=== PATIENT | male | born 1995 | race Caucasian/White ===

== ENCOUNTER 2022-03-08 18:19 | Emergency (ER) | payer BC, MEDICAID ==
[2022-03-08] MEDS ORDERED: Adacel Vial IM ONE (19:04)
--- NOTE | 2022-03-08 19:09 | ERPHSYRPT ---
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 Triage Nursing Assessment: Patient with a laceration to his left hand 2nd digit. Area wrapped with a rag from the patient's kitchen upon arrival to the ED. I moderate amount of blood noted on rag. Patient is able to move finger WNL. 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 Patient reports there is a flap, bleeding but applied firm pressure and improved. Complaining of dull aching mild to moderate pain, more with palpation and movements. No numbness or tingling in the fingertip. Unsure about tetanus status. Timing/Duration: hour(s) (0.5), sudden Quality: painful Severity: mild, moderate Location: hands Possible Causes: other Associated Symptoms: denies symptoms Allergies/Adverse Reactions: No Known Drug Allergies Allergy (Verified 03/08/22 18:29) Hx Tetanus, Diphtheria Vaccination/Date Given: No (Unsure about tetanus) Hx Influenza Vaccination/Date Given: No Hx Pneumococcal Vaccination/Date Given: No Immunizations Up to Date: Yes Travel Risk - International Travel Have you traveled outside of the country in past 3 weeks: No - Coronavirus Screening Are you exhibiting any of the following symptoms?: No Close contact with a COVID-19 positive Pt in past 14-21 Days: No - Vaccine Status Have you recieved a Covid-19 vaccination: No - Review of Systems Constitutional: No Symptoms Ears, Nose, & Throat: No Symptoms Respiratory: No Symptoms Cardiac: No Symptoms Abdominal/Gastrointestinal: No Symptoms Musculoskeletal: Injury Skin: Skin Lesions Neurological: No Symptoms Hematologic/Lymphatic: No Symptoms Immunological/Allergic: No Symptoms - Past Medical History Pertinent Past Medical History: Yes Neurological History: No Pertinent History ENT History: No Pertinent History Cardiac History: Hypertension Respiratory History: No Pertinent History Endocrine Medical History: No Pertinent History Musculoskeletal History: No Pertinent History GI Medical History: No Pertinent History History: No Pertinent History Psycho-Social History: No Pertinent History Male Reproductive Disorders: No Pertinent History - Past Surgical History Past Surgical History: Yes Neuro Surgical History: No Pertinent History Cardiac: No Pertinent History Respiratory: No Pertinent History Gastrointestinal: No Pertinent History Genitourinary: No Pertinent History Musculoskeletal: Other Male Surgical History: No Pertinent History Other Surgical History: Ankles - Social History Smoking Status: Current every day smoker How long have you smoked: 15 years Exposure to second hand smoke: Yes Drug Use: none - Nursing Vital Signs Nursing Vital Signs: Initial Vital Signs Temperature 98 F 03/08/22 18:30 Pulse Rate 84 03/08/22 18:30 Respiratory Rate 19 03/08/22 18:30 Blood Pressure 141/85 03/08/22 18:30 O2 Sat by Pulse Oximetry 96 03/08/22 18:30 Pain Scale Pain Intensity 4 - Physical Exam General Appearance: no apparent distress, alert Eye Exam: PERRL/EOMI Neck Exam: normal inspection, full range of motion Respiratory Exam: normal breath sounds, lungs clear Cardiovascular Exam: regular rate/rhythm, normal heart sounds Extremity Exam: lacerations (3.0 cm flap laceration left index finger pulp and DIP area. Slow oozing. No spurting. Distal neurovascular well intact. Intact range of motion of DIP.), tenderness Neurologic Exam: alert, oriented x 3, cooperative Skin Exam: normal color SpO2 Interpretation: normal SpO2: 96 O2 Delivery: Room Air Procedures - Laceration/Wound Repair Left Finger Time of Procedure: 19:07 Wound Location: Left, hand Wound Length (cm): 3.0 Wound's Depth, Shape: superficial, into muscle, flap Wound Explored: clean Irrigated: Yes Hibiclens Prep: Yes Anesthesia: 1% Lidocaine Volume Anesthetic (ccs): 5 Wound Repaired With: sutures Suture Size/Type: 4-0 Number of Sutures: 8 Sterile Dressing Applied?: Yes Splint Applied?: Yes Type of Splint Applied: Aluminum Ordered Tests: Medication Summary Discontinued Medications Generic Name Dose Route Start Last Admin Trade Name Freq PRN Reason Stop Dose Admin Diphtheria/Tetanus/Acell Pertussis 0.5 ml 03/08/22 19:04 Tdap --Diph,Pertuss(Acell),Tet Vac/Pf 0.5 Ml Vial IM 03/08/22 19:05 .ONCE ONE - Progress Progress: improved Progress Note: 03/08/22 19:08 Laceration is repaired. Tylenol/ibuprofen as needed. Discussed wound care. Outpatient follow-up. Counseled pt/family regarding: diagnosis, need for follow-up - Departure Departure Disposition: Home Clinical Impression: Finger laceration Condition: Stable Critical Care Time: No Referrals: RAFA MALDONADO [Primary Care Provider] - Follow up/PCP as directed (1-2 days for reevaluation) Instructions: Laceration Repair With Stitches (DC) Additional Instructions: Take Tylenol/ibuprofen as needed for pain. Watch for signs of infection. Follow-up with primary care for reevaluation. Return to ER for excruciating pain, swelling, redness, bluish discoloration of tape, fever chills or discharge. Prescriptions: Ibuprofen 600 mg PO Q6HPRN PRN 10 Days #20 tablet PRN Reason: Pain
[2022-03-08] MEDS ORDERED: BACIGUENT PACKET ONE (19:35)
[2022-03-08] MEDS ORDERED: TENIVAC VIAL IM ONE (19:37)
[2022-03-08 19:47] VITALS: BP 123/80; PULSE 80; O2SAT 98
== END 2022-03-08 19:44 | disposition home or self-care (01) ==
LOC: ED 18:19
DX: S61.211A Laceration without foreign body of left index finger without damage to nail, initial encounter (principal); W25.XXXA Contact with sharp glass, initial encounter; I10 Essential (primary) hypertension; Z72.0 Tobacco use; Z28.310 Unvaccinated for COVID-19
CPT/HCPCS: 12002; 90471; 90714; 90715; 99282; A9270-GY